=== PATIENT | male | born 1965 | race African-American/Black ===

== ENCOUNTER 2021-02-18 16:38 | Emergency (ER) | payer OTHER ==
[2021-02-18 18:12] VITALS: BP 136/84; PULSE 82; RESP 18; TEMP 98.1
--- NOTE | 2021-02-18 18:51 | ED ---
Recheck HPI - General Chief Complaint: Recheck/Abnormal Lab/Rx Stated Complaint: Covid Test Time Seen by Provider: 02/18/21 16:43 Source: patient Mode of arrival: ambulatory Limitations: no limitations - History of Present Illness Initial Comments: 55-year-old male presenting to the emergency department with a chief complaint of Covid testing. He needs this for international travel. No further complaints. - Related Data Allergies Allergy/AdvReac Type Severity Reaction Status Date / Time No Known Allergies Allergy Verified 02/18/21 18:12 Review of Systems ROS Statement: Those systems with pertinent positive or pertinent negative responses have been documented in the HPI. ROS Other: All systems not noted in ROS Statement are negative. Past Medical History Past Medical History: Diabetes Mellitus History of Any Multi-Drug Resistant Organisms: None Reported Past Surgical History: No Surgical Hx Reported Past Psychological History: No Psychological Hx Reported Smoking Status: Never smoker Past Alcohol Use History: None Reported Past Drug Use History: None Reported General Exam Limitations: no limitations General appearance: alert, in no apparent distress Head exam: Present: normal inspection Eye exam: Present: normal appearance ENT exam: Present: normal exam Neck exam: Present: normal inspection Extremities exam: Present: normal inspection Back exam: Present: normal inspection Neurological exam: Present: alert, oriented X3 Psychiatric exam: Present: normal affect, normal mood Skin exam: Present: intact, normal color Course Vital Signs 02/18/21 18:09 Temperature 98.1 F Pulse Rate 82 Respiratory 18 Rate Blood Pressure 136/84 O2 Sat by Pulse 100 Oximetry Medical Decision Making - Medical Decision Making Negative Covid - Lab Data Lab Results 02/18/21 Range/Units 17:39 Coronavirus (PCR) Not Detected (Not Detectd) Disposition Clinical Impression: Lab test negative for COVID-19 virus Disposition: HOME SELF-CARE Condition: Stable Additional Instructions: Please return to the Emergency Department if symptoms worsen or any other concerns. Is patient prescribed a controlled substance at d/c from ED?: No Referrals: None,Stated [Primary Care Provider] - 1-2 days Time of Disposition: 18:51
== END 2021-02-18 19:27 | disposition home or self-care (01) ==
LOC: EC 16:38
DX: Z20.822 Contact with and (suspected) exposure to COVID-19 (principal); E11.9 Type 2 diabetes mellitus without complications
CPT/HCPCS: 87635; 99282